=== PATIENT | male | born 1990 | race Hispanic/Latino ===

== ENCOUNTER 2022-04-16 13:28 | Emergency (ER) | payer SELFPAY ==
[2022-04-16 14:36] VITALS: BP 132/71; PULSE 96; RESP 18; TEMP 37.7; O2SAT 100
[2022-04-16 15:20] LABS: Influenza A QL RT-PCR Positive (Negative); Influenza B QL RT-PCR Negative (Negative); SARS-CoV-2 RNA PCR Negative
--- NOTE | 2022-04-16 17:08 | ED.URI ---
HPI - URI/Sore Throat General Chief Complaint: Upper Respiratory Infection Stated Complaint: upper respiratory Time Seen by Provider: 04/16/22 16:53 History of Present Illness HPI Narrative: Patient is a 32-year-old male who presents the ER with body aches and fever. Ongoing for 1 day. Associated with cough. No known sick contacts. He is not vaccinated for flu. No chest pain or chest pressure. Cough is mildly productive. Related Data Allergies Allergy/AdvReac Type Severity Reaction Status Date / Time No Known Allergies Allergy Verified 04/16/22 17:21 Review of Systems Review of Systems: All systems reviewed & are unremarkable except as noted in HPI and below Constitutional: Constitutional: Reports chills, Reports fatigue and Reports fever(s) ENT: Denies nasal congestion and Denies sore throat Cardiovascular: Cardiovascular: Denies chest pain, Denies rapid heart rate and Denies radiating jaw, neck or arm pain Respiratory: Respiratory: Reports cough, Denies dyspnea and Denies wheezing PMFSH Past Medical History Medical History (Updated 04/16/22 @ 17:22 by Osmany Abbott MD) Healthy adult male Surgical History Surgical History (Updated 04/16/22 @ 17:22 by Osmany Abbott MD) No pertinent past surgical history Exam Narrative: GENERAL: Well-appearing, well-nourished, and in no acute distress. HEAD: Normocephalic, atraumatic. CHEST: Clear to auscultation. No respiratory distress. HEART: Regular rate and rhythm. Normal peripheral pulses. EXTREMITIES: Normal range of motion. No edema. SKIN: Warm, dry, no rash. NEURO: Alert and oriented x3. PSYCH: Normal mood and affect. Course Course Emergency Course: Informed of results. Discharge home. Vital Signs Vital signs: Vital Signs Temperature 99.9 F H 04/16/22 14:36 Pulse Rate 96 04/16/22 14:36 Respiratory Rate 18 04/16/22 14:36 Blood Pressure 132/71 04/16/22 14:36 Pulse Oximetry 100 04/16/22 14:36 Temperature 99.9 F H 04/16/22 14:36 Pulse Rate 96 04/16/22 14:36 Respiratory Rate 18 04/16/22 14:36 Blood Pressure 132/71 04/16/22 14:36 Pulse Oximetry 100 04/16/22 14:36 MDM - URI/Sore Throat Lab Data Labs: Lab Results 04/16/22 Range/Units 14:36 Influenza A (RT-PCR) Positive (Negative) Influenza B (RT-PCR) Negative (Negative) SARS-CoV-2 RNA (RT-PCR) Negative Discharge Plan Discharge Clinical Impression: Influenza Patient Disposition: Home, Self-Care Condition: Stable Instructions: Influenza (ED) Additional Instructions: Return to the ER if you have fever over 100.4 ?F, you cannot keep down food or water, you lose consciousness, you have additional concerns. Take Tylenol or ibuprofen as needed for fever and body aches. Make sure to stay hydrated. Prescriptions: New oseltamivir 75 mg capsule 75 mg PO BID Qty: 10 0RF Follow-up/Referrals: PHYSICIAN,[employer] [Primary Care Provider] - Marya Whitman DO [Physician] - 1 Week
== END 2022-04-16 17:22 | disposition home or self-care (01) ==
PROVIDERS: Emergency Provider Emergency Medicine
DX: J10.1 Influenza due to other identified influenza virus with other respiratory manifestations (principal); Z20.822 Contact with and (suspected) exposure to COVID-19
CPT/HCPCS: 87636; 99283